=== PATIENT | female | born 1990 | race Hispanic/Latino ===

== ENCOUNTER 2017-11-08 06:31 | Emergency (ER) | payer OTHER ==
[2017-11-08] MEDS: Sodium Chloride 0.9% 1,000 ML IV STA (07:10)
--- NOTE | 2017-11-08 07:16 | ED PDOC ---
HPI: Female Pain Time Seen by Provider: 11/08/17 06:45 Chief Complaint (Nursing): Female Genitourinary Chief Complaint (Provider): Right flank pain History Per: Patient History/Exam Limitations: no limitations Onset/Duration Of Symptoms: Hrs (x3) Current Symptoms Are (Timing): Still Present Quality Of Discomfort: "Pain" Associated Symptoms: Nausea, Back Pain (right flank pain), Urinary Symptoms ( dysuria). denies: Fever, Chills, Vomiting Additional Complaint(s): Karen Khan is a 27 year old female, with no significant past medical history, who presents to the emergency department complaining of an acute onset of right flank pain onset for x3 hrs. Patient reports the pain radiates to the right groin and it began around 4:00am today. She thought she had to urinate but had tremendous pain. Patient is also complaining of nausea but denies any vomiting, fever or chills. No further medical complaints. PMD: None provided. Past Medical History Reviewed: Historical Data, Nursing Documentation, Vital Signs Vital Signs: Last Vital Signs Temp 97.4 F L 11/08/17 06:34 Pulse 85 11/08/17 06:34 Resp 16 11/08/17 06:34 BP 127/98 H 11/08/17 06:34 Pulse Ox 100 11/08/17 06:34 - Medical History PMH: No Chronic Diseases - Surgical History Surgical History: No Surg Hx - Family History Family History: States: No Known Family Hx - Social History Current smoker - smoking cessation education provided: No Alcohol: Occasional Drugs: Denies - Home Medications Home Medications: Ambulatory Orders Medication Instructions Recorded Nitrofurantoin Macrocrystals 100 mg PO BID #10 cap 11/08/17 [Macrobid] Ondansetron ODT [Zofran ODT] 4 mg PO Q6 PRN #10 odt 11/08/17 Tamsulosin [Flomax] 0.4 mg PO DAILY #2 cap 11/08/17 oxyCODONE/Acetaminophen [Percocet 1 ea PO Q6 PRN #5 tab 11/08/17 5/325 mg Tab] - Allergies Allergies/Adverse Reactions: Allergies Allergy/AdvReac Type Severity Reaction Status Date / Time No Known Allergies Allergy Verified 11/08/17 06:36 Review of Systems ROS Statement: Except As Marked, All Systems Reviewed And Found Negative Constitutional: Negative for: Fever, Chills Gastrointestinal: Positive for: Nausea. Negative for: Vomiting Genitourinary Female: Positive for: Dysuria, Other (right flank pain that radiates to right groin) Physical Exam - Reviewed Nursing Documentation Reviewed: Yes Vital Signs Reviewed: Yes - Physical Exam Appears: Positive for: Non-toxic, Uncomfortable (clutching her right side) Head Exam: Positive for: ATRAUMATIC, NORMOCEPHALIC Skin: Positive for: Normal Color, Warm, Dry Eye Exam: Positive for: Normal appearance Neck: Positive for: Painless ROM Cardiovascular/Chest: Positive for: Regular Rate, Rhythm. Negative for: Murmur Respiratory: Positive for: Normal Breath Sounds. Negative for: Respiratory Distress Gastrointestinal/Abdominal: Positive for: Normal Exam, Soft. Negative for: Tenderness, Guarding, Rebound Back: Positive for: Other (right flank tenderness) Extremity: Positive for: Normal ROM (all extremities). Negative for: Deformity , Swelling Neurologic/Psych: Positive for: Alert, Oriented. Negative for: Motor/Sensory Deficits - Laboratory Results Result Diagrams: 11/08/17 07:15 11/08/17 07:15 - ECG O2 Sat by Pulse Oximetry: 100 (RA) Pulse Ox Interpretation: Normal Medical Decision Making Medical Decision Making: Initial Impression: flank pain r/o kidney stones Initial Plan: --Abd & Pelvis w/o PO or IV contrast [CT] --Beta-HCG, Quantitative --CMP --CBC w/ differential --Morphine 4 mg IV --Sodium Chloride 1,000 ml IV 999 mls/hr --Urine C&S --Urinalysis --Reevaluation 07:00 -Patient will be signed out to Dr. Lemus pending CT, labs and reevaluation Scribe Attestation: Documented by Jacinto Kelley, acting as a nicolle Chavis MD Provider Nicolle Attestation: All medical record entries made by the Nicolle were at my direction and personally dictated by me. I have reviewed the chart and agree that the record accurately reflects my personal performance of the history, physical exam, medical decision making, and the department course for this patient. I have also personally directed, reviewed, and agree with the discharge instructions and disposition. Disposition - Clinical Impression Clinical Impression: Ureterolithiasis, Perineal cyst in female - Patient ED Disposition Is Patient to be Admitted: Transfer of Care - Disposition Referrals: Venkatesh Sanford Jr., MD [Staff Provider] - Disposition: Transfer of Care Disposition Time: 07:00 Condition: STABLE Additional Instructions: See urologist if flank pain persists. Return to ER for any fever, worse or new symptoms. See [employer]ING [employer]ER doctor for evaluation of incidental perineal cyst seen on CT scan Prescriptions: Nitrofurantoin Macrocrystals [Macrobid] 100 mg PO BID #10 cap Ondansetron ODT [Zofran ODT] 4 mg PO Q6 PRN #10 odt PRN Reason: Nausea/Vomiting oxyCODONE/Acetaminophen [Percocet 5/325 mg Tab] 1 ea PO Q6 PRN #5 tab PRN Reason: Pain, Severe (8-10) Tamsulosin [Flomax] 0.4 mg PO DAILY #2 cap Instructions: Kidney Stones in Adults Forms: [facility] ([place])
[2017-11-08 07:30] LABS: SQUAMOUS EPITHIAL 44 /hpf (0-5); URINE BACTERIA FEW (<OCC); URINE BILIRUBIN NEGATIVE (NEGATIVE); URINE BLOOD MODERATE (NEGATIVE); URINE CLARITY CLOUDY (Clear); URINE COLOR AMBER (YELLOW); URINE GLUCOSE (UA) NEG (Normal); URINE HYALINE CAST 0-2 /hpf (0-2); URINE LEUKOCYTE ESTERASE SMALL Leu/uL (Negative); URINE PROTEIN 100 mg/dL (NEGATIVE); URINE UROBILINOGEN 0.2-1.0 mg/dL (0.2-1.0)
[2017-11-08 07:34] LABS: ALB/GLOB RATIO 1.3 (1.0-2.1); ALBUMIN 4.4 g/dL (3.5-5.0); CALCIUM 9.7 mg/dL (8.4-10.2); GFR AFRICAN-AMERICAN > 60; GFR NON-AFRICAN AMERICAN > 60
[2017-11-08 07:36] LABS: ALT/SGPT 38 U/L (9-52); AST/SGOT 39 U/L (14-36); BLOOD UREA NITROGEN 12 mg/dl (7-17)
[2017-11-08] MEDS ORDERED: HYDROmorphone 0.5 mg/0.5 ml ISec ONE (07:47)
[2017-11-08 07:50] VITALS: RESP 20
[2017-11-08] MEDS: HYDROmorphone 0.5 mg/0.5 ml ISec IVP ONE (07:53)
[2017-11-08 07:58] LABS: BASO % 0.3 % (0.0-2.0); EOS # 0.1 K/uL (0.0-0.7); EOS % 2.1 % (0.0-4.0); LYMPH # 2.4 K/uL (1.0-4.3); LYMPH % 33.9 % (20.0-40.0); MEAN CELL VOLUME 89.6 fl (81.0-99.0); MEAN CORPUSCULAR HEMOGLOBIN 32.3 pg (27.0-31.0); MEAN CORPUSCULAR HGB CONC 36.1 g/dL (33.0-37.0); MEAN PLATELET VOLUME 9.5 fl (7.2-11.7); MONO # 0.5 K/uL (0.0-0.8); MONO % 6.7 % (0.0-10.0); NRBC % 0.3 % (0.0-0.0); RBC 4.32 Mil/uL (3.80-5.20); RED CELL DISTRIBUTION WIDTH 13.7 % (11.5-14.5)
[2017-11-08 08:12] LABS: HEMOGLOBIN 13.7 g/dL (12.0-16.0)
--- NOTE | 2017-11-08 08:53 | CT ---
EXAM: CT Abdomen and Pelvis Without Intravenous Contrast CLINICAL HISTORY: 27 years old, female; Pain; Abdominal pain; Acute; Additional info: Abd pain TECHNIQUE: Axial computed tomography images of the abdomen and pelvis without intravenous contrast. All CT scans at this facility use one or more dose reduction techniques, viz.: automated exposure control; ma/kV adjustment per patient size (including targeted exams where dose is matched to indication; i.e. head); or iterative reconstruction technique. 562 images are submitted. Coronal and sagittal reformatted images were created and reviewed. COMPARISON: No relevant prior studies available. FINDINGS: Limitations: Absence of IV contrast decreases sensitivity for detecting vascular and visceral injury and abnormality. Lung bases: Unremarkable. No mass. No consolidation. ABDOMEN: Liver: Unremarkable. Gallbladder and bile ducts: Unremarkable. No ductal dilation. Pancreas: Unremarkable. No ductal dilation. Spleen: Unremarkable. No splenomegaly. Adrenals: Unremarkable. No mass. Kidneys and ureters: There is mild right hydroureteronephrosis with a possible 2 mm right distal ureteral seen on image 68 series 2 and on image 48 series 601 representing acute obstructive uropathy. Faint densities in the medullary regions of both kidneys are somewhat nonspecific, perhaps reflecting dense solute, Boy's plaque, tiny calcifications, or other debris. Stomach and bowel: Possible diverticulosis. No obstruction. No mucosal thickening. PELVIS: Appendix: Normal appendix seen on image #[id number] coronal. Bladder: There is nonspecific bladder wall thickening. This may be related to incomplete distention. Reproductive: There is hyperdense nodule in the perineal soft tissues seen on image 158 series 3 representing a cyst with calcification or hemorrhage measuring 0.9 cm versus urethral divcerticulum with high attenuation vs unusual bartholin gland cyst..#80, series 2. Retroflexed uterus. ABDOMEN and PELVIS: Intraperitoneal space: Unremarkable. No free air. No significant fluid collection. Bones/joints: No acute fracture. No dislocation. Right femoral head bone island in view of patient's young age. The radiographic differential considerations would include blastic etiology. Soft tissues: Unremarkable. Vasculature: The aorta is normal in caliber and there are no ronal-aortic collections. Lymph nodes: Multiple subcentimeter mesenteric and ileocolic lymph nodes. Findings are nonspecific but may represent mesenteric adenitis. IMPRESSION: 1. There is mild right hydroureteronephrosis with a possible 2 mm right distal ureteral stone seen on image 68 series 2 and on image 48 series 601 representing acute obstructive uropathy. Correlation with internal medicine evaluation and further workup or followup as recommended by patient's clinical data.
--- NOTE | 2017-11-08 09:22 | ED PDOC ---
- Laboratory Results Result Diagrams: 11/08/17 07:15 11/08/17 07:15 - ECG O2 Sat by Pulse Oximetry: 99 Medical Decision Making Medical Decision Makin:00 -Patient was endorsed to me by Dr. Chavis, pending CT and reevaluation labs unremarkable 08:[address] FINDINGS: Limitations: Absence of IV contrast decreases sensitivity for detecting vascular and visceral injury and abnormality. Lung bases: Unremarkable. No mass. No consolidation. ABDOMEN: Liver: Unremarkable. Gallbladder and bile ducts: Unremarkable. No ductal dilation. Pancreas: Unremarkable. No ductal dilation. Spleen: Unremarkable. No splenomegaly. Adrenals: Unremarkable. No mass. Kidneys and ureters: There is mild right hydroureteronephrosis with a possible 2 mm right distal ureteral seen on image 68 series 2 and on image 48 series 601 representing acute obstructive uropathy. Faint densities in the medullary regions of both kidneys are somewhat nonspecific, perhaps reflecting dense solute, Boy's plaque, tiny calcifications, or other debris. Stomach and bowel: Possible diverticulosis. No obstruction. No mucosal thickening. PELVIS: Appendix: Normal appendix seen on image #[id number] coronal. Bladder: There is nonspecific bladder wall thickening. This may be related to incomplete distention. Reproductive: There is hyperdense nodule in the perineal soft tissues seen on image 158 series 3 representing a cyst with calcification or hemorrhage measuring 0.9 cm versus urethral divcerticulum with high attenuation vs unusual bartholin gland cyst..#80, series 2. Retroflexed uterus. ABDOMEN and PELVIS: Intraperitoneal space: Unremarkable. No free air. No significant fluid collection. Bones/joints: No acute fracture. No dislocation. Right femoral head bone island in view of patient's young age. The radiographic differential considerations would include blastic etiology. Soft tissues: Unremarkable. Vasculature: The aorta is normal in caliber and there are no ronal-aortic collections. Lymph nodes: Multiple subcentimeter mesenteric and ileocolic lymph nodes. Findings are nonspecific but may represent mesenteric adenitis. IMPRESSION: 1. There is mild right hydroureteronephrosis with a possible 2 mm right distal ureteral stone seen on image 68 series 2 and on image 48 series 601 representing acute obstructive uropathy. Correlation with internal medicine evaluation and further workup or followup as recommended by patient's clinical data. 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 Return to ER for any fever, worse or new symptoms. 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
[2017-11-08 12:15] VITALS: BP 120/70; PULSE 74; TEMP 98
[2017-11-09 19:39] VITALS: O2SAT 100
== END 2017-11-08 12:15 | disposition home or self-care (01) ==
LOC: H.ER 06:31
DX: N13.2 Hydronephrosis with renal and ureteral calculous obstruction (principal); L02.215 Cutaneous abscess of perineum; R50.9 Fever, unspecified
CPT/HCPCS: 74176; 80053; 81003; 81025; 84702; 85025; 87086; 96374; 96375; 99284; J1170; J1885; J2270; J7040